=== PATIENT | male | born 1960 | race Caucasian/White ===

== ENCOUNTER → 2016-12-31 | Outpatient (CLI) | payer BC ==
--- NOTE | 2016-12-31 13:04 | XR ---
EXAMINATION TYPE: XR chest 2V DATE OF EXAM: 12/31/2016 12:59 PM COMPARISON: NONE HISTORY: Shortness of breath TECHNIQUE: Frontal and lateral views of the chest are obtained. FINDINGS: Scattered senescent parenchymal changes noted. Hyperinflation compatible with COPD. No evidence for infiltrate. No evidence for atelectasis. Heart size is stable. Mediastinal structures are stable and grossly unremarkable. No evidence for hilar prominence. Degenerative changes dorsal spine. IMPRESSION: 1. No evidence for acute pulmonary disease.
== END | disposition home or self-care (01) ==
LOC: RADXRMAIN 12:44
PROVIDERS: ATTEND Family Medicine
DX: J18.9 Pneumonia, unspecified organism (principal)
CPT/HCPCS: 71020

== ENCOUNTER → 2018-04-26 | Outpatient (CLI) | payer BC ==
--- NOTE | 2018-04-26 13:23 | XR ---
EXAMINATION TYPE: XR wrist complete BILATERAL DATE OF EXAM: 04/26/2018 CLINICAL HISTORY: Arthropathy per order. Bilateral pain. TECHNIQUE: Frontal, lateral, scaphoid, and oblique images of the bilateral wrists are obtained. COMPARISON: Left wrist x-ray June 09, 2012 FINDINGS: There is no acute fracture/dislocation evident in the bilateral wrists. Mild symmetric rad iocarpal joint space loss is present. No significant spurring is seen bilaterally. The overlying sof t tissue appears unremarkable bilaterally. IMPRESSION: As above.
--- NOTE | 2018-04-26 13:24 | XR ---
EXAMINATION TYPE: XR hand complete bilateral DATE OF EXAM: 04/26/2018 CLINICAL HISTORY: Arthropathy per order. Pain per patient. TECHNIQUE: Frontal, lateral and oblique images of the bilateral hands are obtained. COMPARISON: Left hand x-ray June 09, 2012 FINDINGS: There is no acute fracture/dislocation evident in either hand. The joint spaces in the himanshu ateral hands appear within normal limits. Mild diffuse soft tissue prominence and/or swelling is pres ent bilaterally. Impression: As above.
--- NOTE | 2018-04-26 14:12 | XR ---
EXAMINATION TYPE: XR shoulder complete BILAT DATE OF EXAM: 04/26/2018 CLINICAL HISTORY: Arthropathy per order. TECHNIQUE: Two views of the bilateral shoulders are obtained. COMPARISON: None. FINDINGS: There is no acute fracture/dislocation evident in either shoulder. There is moderate asymm etric increased joint space loss right acromioclavicular joint versus left side which shows mild narr owing. There may be old healed fracture mid aspect left clavicle. Glenohumeral joints are preserved b ilaterally. The visualized ribs are intact and unremarkable bilaterally. IMPRESSION: As above.
--- NOTE | 2018-04-26 14:14 | XR ---
EXAMINATION TYPE: XR Hip Bilateral Complete DATE OF EXAM: 04/26/2018 CLINICAL HISTORY: Bilateral hip pain. TECHNIQUE: AP and frogleg views of the bilateral hips are obtained. COMPARISON: None. FINDINGS: There is no acute fracture/dislocation evident in hilar hip. There is asymmetric mild to m oderate left axial joint space loss and head neck junction spurring in the left hip. Right hip joint is fairly well-maintained. The overlying soft tissue appears unremarkable bilaterally. IMPRESSION: There is asymmetric degenerative change in the left hip.
== END | disposition home or self-care (01) ==
LOC: RADXRMAIN 12:32
PROVIDERS: ATTEND Family Medicine
DX: R93.7 Abnormal findings on diagnostic imaging of other parts of musculoskeletal system (principal); M25.832 Other specified joint disorders, left wrist; M25.831 Other specified joint disorders, right wrist; M25.552 Pain in left hip; M12.9 Arthropathy, unspecified; M79.89 Other specified soft tissue disorders
CPT/HCPCS: 73521

== ENCOUNTER → 2019-01-02 | Outpatient (CLI) | payer BC ==
[2019-01-02 18:40] LABS: Vitamin D 25 Hydroxy 10.3 ng/mL (30.0-100.0)
== END | disposition home or self-care (01) ==
LOC: LABWHC1 13:09
PROVIDERS: ATTEND Psychiatry & Neurology Neurology
DX: M79.10 Myalgia, unspecified site (principal); R41.3 Other amnesia; M54.2 Cervicalgia; M25.50 Pain in unspecified joint
CPT/HCPCS: 36415; 82306; 82550; 82607; 82747; 85652

== ENCOUNTER → 2020-10-29 | Outpatient (CLI) | payer BC ==
--- NOTE | 2020-10-29 15:50 | XR ---
EXAMINATION TYPE: XR chest 2V DATE OF EXAM: 10/29/2020 COMPARISON: 12/31/2016 HISTORY: 60-year-old male upper respiratory infection, J06.9 TECHNIQUE: Frontal and lateral views FINDINGS: The cardiomediastinal silhouette, aorta, and pulmonary vasculature are within normal limits. Lungs an d pleural spaces are clear. IMPRESSION: No acute cardiopulmonary process.
== END | disposition home or self-care (01) ==
LOC: RADXRMAIN 13:53
PROVIDERS: ATTEND Family Medicine
DX: J06.9 Acute upper respiratory infection, unspecified (principal)
CPT/HCPCS: 71046

== ENCOUNTER → 2021-05-04 | Outpatient (CLI) | payer BC ==
--- NOTE | 2021-05-04 13:36 | XR ---
EXAMINATION TYPE: XR cervical spine w flex/ext DATE OF EXAM: 05/04/2021 COMPARISON: NONE HISTORY: Spondylosis TECHNIQUE: AP, flexion and extension, lateral oblique and odontoid views of the cervical spine were o btained. FINDINGS: The dens is intact. Atlantoaxial and atlantooccipital articulations appear intact. There is mild to moderate left neural foraminal stenosis. Mild right neural foraminal stenosis. C7-T1 is well visualized. No loss of vertebral body height. No significant narrowing of the intervertebral disc sp aces. There is a prominent osteophyte anteriorly at C5-C6. Prevertebral soft tissues are unremarkable . No instability on flexion or extension views. IMPRESSION: 1. Multilevel degenerative changes as described above. No loss of vertebral body height suggest acute compression fracture.
== END | disposition home or self-care (01) ==
LOC: RADXRMAIN 13:09
PROVIDERS: ATTEND Internal Medicine
DX: M99.71 Connective tissue and disc stenosis of intervertebral foramina of cervical region (principal)
CPT/HCPCS: 72052

== ENCOUNTER → 2021-05-21 | Outpatient (CLI) | payer BC ==
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
== END | disposition home or self-care (01) ==
LOC: RADMRIMAIN 16:32
PROVIDERS: ATTEND Internal Medicine
DX: M50.221 Other cervical disc displacement at C4-C5 level (principal)
CPT/HCPCS: 72141

== ENCOUNTER → 2021-06-18 | Outpatient (CLI) | payer BC ==
--- NOTE | 2021-06-18 16:18 | XR ---
EXAMINATION TYPE: XR chest 2V DATE OF EXAM: 06/18/2021 COMPARISON: 10/29/2020 HISTORY: 61-year-old male M5 0.023 TECHNIQUE: Frontal and lateral views FINDINGS: The cardiomediastinal silhouette, aorta, and pulmonary vasculature are within normal limits. Some str yamile atelectasis retrocardiac region. No consolidation or pleural effusion. IMPRESSION: No acute cardiopulmonary process.
== END | disposition home or self-care (01) ==
LOC: RADXRMAIN 13:56
PROVIDERS: ATTEND Neurological Surgery
DX: M50.023 Cervical disc disorder at C6-C7 level with myelopathy (principal); Z20.822 Contact with and (suspected) exposure to COVID-19
CPT/HCPCS: 71046; U0003; U0005

== ENCOUNTER → 2021-07-13 | Outpatient (CLI) | payer BC | END | disposition home or self-care (01) | LOC: LABWHC1 11:08 | PROVIDERS: ATTEND Neurological Surgery | DX: Z20.822 Contact with and (suspected) exposure to COVID-19 (principal); M50.023 Cervical disc disorder at C6-C7 level with myelopathy | CPT/HCPCS: U0003; C9803; U0005 ==

== ENCOUNTER 2022-01-08 12:08 | Emergency (ER) | payer BC ==
[2022-01-08 12:19] LABS: Glucose,Whole Blood 109 mg/dL (75-99)
[2022-01-08] MEDS ORDERED: SODIUM CHLORIDE 0.9% 500 ML 500 ML IV STA (12:31)
[2022-01-08 12:50] VITALS: BP 132/74; RESP 16
[2022-01-08 13:09] LABS: ALT 46 U/L (4-49); AST 34 U/L (17-59); African American GFR (CKD) >90 (>60 ml/min/1.73 sqM); Albumin 4.6 g/dL (3.5-5.0); Alcohol <10 mg/dL; Alkaline Phosphatase 77 U/L (38-126); Anion Gap 7 mmol/L; Blood Urea Nitrogen 19 mg/dL (9-20); Calcium 9.3 mg/dL (8.4-10.2); Carbon Dioxide 27 mmol/L (22-30); Chloride 104 mmol/L (98-107); Glucose 98 mg/dL (74-99); Magnesium 1.9 mg/dL (1.6-2.3); Non-African American GFR(CKD) >90 (>60 ml/min/1.73 sqM); Potassium 4.2 mmol/L (3.5-5.1); Sodium 138 mmol/L (137-145); Total Bilirubin 1.4 mg/dL (0.2-1.3); Total Protein 7.9 g/dL (6.3-8.2)
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
[2022-01-08 13:12] LABS: Basophils # (A) 0.1 k/uL (0-0.2); Basophils % (A) 1 %; Eosinophils # (A) 0.1 k/uL (0-0.7); Eosinophils % (A) 2 %; HCT 49.5 % (39.0-53.0); HGB 16.7 gm/dL (13.0-17.5); Lymphocytes # (A) 1.6 k/uL (1.0-4.8); Lymphocytes % (A) 19 %; MCH 30.9 pg (25.0-35.0); MCHC 33.7 g/dL (31.0-37.0); MCV 91.7 fL (80.0-100.0); Mean Platelet Volume 6.8; Monocytes # (A) 0.4 k/uL (0-1.0); Monocytes % (A) 4 %; Neutrophils # (A) 6.3 k/uL (1.3-7.7); Neutrophils % (A) 74 %; Platelet Count 235 k/uL (150-450); RBC 5.39 m/uL (4.30-5.90); RDW 12.3 % (11.5-15.5); WBC 8.5 k/uL (3.8-10.6)
[2022-01-08 13:41] LABS: Partial Thromboplastin Time 23.9 sec (22.0-30.0); Prothrombin Time 10.8 sec (9.0-12.0)
[2022-01-08 14:30] LABS: Appearance,Urine Clear (Clear); Bilirubin,Urine Negative (Negative); Blood,Urine Negative (Negative); Color,Urine Light Yellow; Glucose,Urine (UA) Negative (Negative); Ketones,Urine Negative (Negative); Leukocyte Esterase,Urine Negative (Negative); Nitrite,Urine Negative (Negative); PH, Urine 7.5 (5.0-8.0); Protein,Urine Negative (Negative); Specific Gravity,Urine 1.009 (1.001-1.035); Urobilinogen,Urine <2.0 mg/dL (<2.0)
[2022-01-08 14:45] LABS: Amphetamine Screen,Urine Not Detected (NotDetected); Barbiturate Screen,Urine Not Detected (NotDetected); Benzodiazepines Screen,Urine Not Detected (NotDetected); Cocaine Screen,Urine Not Detected (NotDetected); Methadone Screen, Urine Not Detected (NotDetected); Opiate Screen,Urine Not Detected (NotDetected); Oxycodone Screen, Urine Not Detected (NotDetected); Phencyclidine Screen,Urine Not Detected (NotDetected); Tricyclic Antidepressant,Urine Not Detected (NotDetected); Urn Cannabinoid Scrn Not Detected (NotDetected)
[2022-01-08 15:21] VITALS: PULSE 62; TEMP 97.4
== END 2022-01-08 15:25 | disposition home or self-care (01) ==
LOC: EC 12:08
DX: T88.7XXA Unspecified adverse effect of drug or medicament, initial encounter (principal); Z88.0 Allergy status to penicillin; Z90.49 Acquired absence of other specified parts of digestive tract; X58.XXXA Exposure to other specified factors, initial encounter
CPT/HCPCS: 36415; 80053; 80306; 80320; 81003; 83605; 83735; 84484; 85025; 85610; 85730; 93005; 99285

== ENCOUNTER → 2022-09-27 | Outpatient (CLI) | payer MEDICARE ==
--- NOTE | 2022-09-27 13:01 | XR ---
EXAMINATION TYPE: XR elbow complete RT DATE OF EXAM: 09/27/2022 CLINICAL HISTORY: Pain. Recent fall injury. TECHNIQUE: Frontal, lateral and oblique images of the right elbow are obtained. COMPARISON: None FINDINGS: There is no acute fracture/dislocation evident in the right elbow. No abnormal fat pad si gns are seen. Small spur from the medial epicondyle distal humerus. Tiny ossifications near distal tr iceps tendon insertion on the olecranon. The overlying soft tissue appears unremarkable. IMPRESSION: There is no acute fracture or dislocation in the right elbow.
--- NOTE | 2022-09-27 13:03 | XR ---
EXAMINATION TYPE: XR shoulder complete RT DATE OF EXAM: 09/27/2022 CLINICAL HISTORY: Pain. TECHNIQUE: Three views of the right shoulder are obtained. COMPARISON: Bilateral shoulder x-rays 2018. FINDINGS: There is no acute fracture/dislocation evident in either shoulder. Moderate to severe narr owing at the acromioclavicular joint redemonstrated. Distal acromion morphology unremarkable. Glenoh umeral joint maintained. The visualized ribs are intact. Surgical change lower cervical spine is susp ected on one image. IMPRESSION: As above.
--- NOTE | 2022-09-27 13:04 | XR ---
EXAMINATION TYPE: XR Hip Complete LT DATE OF EXAM: 09/27/2022 CLINICAL HISTORY: Pain. TECHNIQUE: AP and frogleg views of the left hip are obtained. COMPARISON: None. FINDINGS: There is no acute fracture/dislocation evident in the left hip. Moderate axial joint space loss left hip. [id number] head neck collar spurring proximal left femur. Subchondral cystic ch alisia superior lateral acetabulum. Moderate rectal fecal prominence noted. Correlate clinically. IMPRESSION: As above.
== END | disposition home or self-care (01) ==
LOC: RADXRMAIN 12:04
PROVIDERS: ATTEND Internal Medicine
DX: M25.552 Pain in left hip (principal); M25.511 Pain in right shoulder; M25.521 Pain in right elbow
CPT/HCPCS: 73502

== ENCOUNTER → 2022-10-19 | Outpatient (CLI) | payer MEDICARE | END | disposition home or self-care (01) | LOC: RADNMMAIN 07:31 | PROVIDERS: ATTEND Internal Medicine | DX: Z53.9 Procedure and treatment not carried out, unspecified reason (principal) ==

== ENCOUNTER → 2023-02-08 | Outpatient (CLI) | payer MEDICARE ==
[2023-02-08 12:51] LABS: Partial Thromboplastin Time 24.9 sec (22.0-30.0)
[2023-02-08 15:03] LABS: Prothrombin Time 10.1 sec (9.0-12.0)
[2023-02-08 15:33] LABS: HCT 45.7 % (39.6-50.0); HGB 15.1 g/dL (13.0-17.0); MCH 30.2 pg (27.0-32.0); MCV 91.4 fL (80.0-97.0); Mean Platelet Volume 9.6 fL (9.5-12.2); NRBC Per 100 WBC 0 /100 WBCS (0.0-0.0); Platelet Count 257 X 10*3/uL (140-440); RDW 12.1 % (11.5-14.5); WBC 5.56 X 10*3/uL (4.50-10.00)
[2023-02-08 15:45] LABS: Appearance,Urine Clear (Clear); Bilirubin,Urine Negative (Negative); Blood,Urine Negative (Negative); Color,Urine Yellow (Yellow); Ketones,Urine Negative (Negative); Nitrite,Urine Negative (Negative); Specific Gravity,Urine 1.018 (1.001-1.030)
[2023-02-08 16:18] LABS: African American GFR (CKD) 108.9 (60.0-200.0); Albumin 4.3 g/dL (3.8-4.9); Albumin/Globulin Ratio 1.58 (1.60-3.17); Anion Gap 11.9 mmol/L (10.00-18.00); BUN/Creat Ratio 21.13 Ratio (12.00-20.00); Calcium 9.5 mg/dL (8.7-10.3); Carbon Dioxide 24.3 mmol/L (20.0-27.5); Globulin 2.7 g/dL (1.6-3.3); Potassium 4.9 mmol/L (3.5-5.5); Total Bilirubin 0.6 mg/dL (0.30-1.20)
== END | disposition home or self-care (01) ==
LOC: LABPAT 11:03
PROVIDERS: ATTEND Orthopaedic Surgery
DX: Z01.812 Encounter for preprocedural laboratory examination (principal); M16.12 Unilateral primary osteoarthritis, left hip
CPT/HCPCS: 80053; 81003; 85027; 85610; 85730; 86850; 86900; 86901; 87070; 93005

== ENCOUNTER 2023-02-15 05:34 | Day surgery (SDC) | payer MEDICARE ==
[~2023-02-15 05:34] MED LIST: ACETAMINOPHEN TAB 500 MG TAB PO PRN; GABAPENTIN 300 MG CAP PO PRN; MELOXICAM 7.5 MG TAB PO PRN; TRANEXAMIC ACID IN NACL,ISO-OS 1,000 MG in SALINE 1 100ML.BAG IVPB PRN
[2023-02-15] MEDS ORDERED: MIDAZOLAM 2 MG/2 ML VIAL IV PRN (05:42)
[2023-02-15] MEDS ORDERED: DEXAMETHASONE SOD PHOSPHATE 4 MG/ML 1 ML VIAL IV ONE (05:42)
[2023-02-15] MEDS ORDERED: LACTATED RINGERS 1,000 ML IV SCH (05:42)
[2023-02-15] MEDS ORDERED: ONDANSETRON 4 MG/2 ML VIAL IVP ONE (05:42)
[2023-02-15] MEDS ORDERED: LIDOCAINE 1% (10MG/ML) FOR IV START INTRADERMA PRN (05:42)
[2023-02-15] MEDS ORDERED: fentaNYL (PF) 50 MCG/1 ML VIAL IVP ONE (06:34)
[2023-02-15 06:53] VITALS: RESP 16
[2023-02-15] MEDS ORDERED: fentaNYL (PF) 50 MCG/ML 2 ML AMP ONE (06:57)
[2023-02-15] MEDS ORDERED: ROPIVACAINE 5 MG/ML 30 ML VIAL ONE (06:57)
[2023-02-15] MEDS ORDERED: SUCCINYLCHOLINE CHLORIDE 200 MG/10 ML VIAL IV ONE (06:57)
[2023-02-15] MEDS ORDERED: GLYCOPYRROLATE 0.2 MG/ML 2 ML VIAL ONE (06:57)
[2023-02-15] MEDS ORDERED: PROPOFOL 10 MG/ML 20 ML VIAL IV ONE (06:57)
[2023-02-15] MEDS ORDERED: TRANEXAMIC ACID IN NACL,ISO-OS 1,000 MG/100 ML BAG ONE (06:57)
[2023-02-15] MEDS ORDERED: LIDOCAINE 2% INJ 20 MG/ML (2 ML VIAL) ONE (06:57)
[2023-02-15] MEDS ORDERED: ceFAZolin 1,000 MG in SODIUM CHLORIDE 0.9% 1,000 ML IRRIGATION ONE (07:00)
[2023-02-15] MEDS ORDERED: ROPIVACAINE 5 MG/ML 30 ML VIAL MISCELLANE ONE (07:26)
[2023-02-15] MEDS ORDERED: LACTATED RINGERS 1,000 ML IV ONE (08:08)
--- NOTE | 2023-02-15 08:19 | P.OP ---
Date of Procedure: 02/15/23 Preoperative Diagnosis: Severe osteoarthritis left hip Postoperative Diagnosis: Severe osteoarthritis left hip Procedure(s) Performed: Left total hip arthroplasty with a direct anterior approach Implants: [employer] Polarstem standard size 2 [employer] R3, 3 hole hemispherical acetabular shell, 50 mm [employer] Reflection 6.5 mm cancellus screw, 20 mm, 25 mm [employer] R3, XLPE 20 acetabular liner [employer]hew Oxinium femoral head 36 m, +0 All components were press-fit. The articulation is Oxinium on polyethylene. Anesthesia: GETA Surgeon: Dov Kimball Patient Access Coordinator #1: Sarah Aguilar Estimated Blood Loss (ml): 650 Pathology: other (Femoral head) Condition: stable Disposition: PACU Indications for Procedure: After failure of conservative treatment we discussed the surgical and nonsurgica l treatment options at length. Patient wishes to proceed with a total hip arthroplasty with a direct anterior approach. Complications specific to this procedure were discussed at length, including but not limited to infection, leg length discrepancy, dislocation, nerve injury, and fracture. Covid-19 was also discussed at length with the patient, and they are aware of the current policies and procedures. The patient was given the option of delaying surgery, but they elect to proceed knowing these risks. Patient is aware of all these complications and informed consent was obtained Operative Findings: The operative findings are consistent with severe osteoarthritis of the left hip Description of Procedure: The patient was seen and evaluated in the preoperative area and the consent was reviewed. The operative site was marked with a skin marker. The patient verified the procedure and operative site. A KRISOTFER block was placed by anesthesia in the preoperative area. The patient was then brought to the operating room and given preoperative antibiotics intravenously. 1 g of Tranexamic acid was also given intravenously. A general anesthetic was administered by the anesthesia department. The patient was then placed on the [place] table with the bony prominences well-padded. The hip area was then prepped with a ChloraPrep solution and draped in the usual sterile fashion. A universal timeout was then performed, which confirmed the patient's name, surgical site, ALLERGIES, and procedure being performed on the consent. Next the incision site was located at 1 cm distal and 4 cm lateral to the anterior superior iliac spine. The skin and subcutaneous tissues were sharply incised. Incision was carefully dissected down to the fascia overlying the tensor fascia faby muscle. This fascia was then incised in line with the muscle fibers. Care was taken to stay laterally in order to avoid injuring the lateral femoral cut aneous nerve. Next, using blunt finger dissection, the tensor fascia faby muscle was dissected off its investing fascia. The muscle was then carefully retracted laterally with a cobra retractor over the lateral neck of the femur. Next, the circumflex vessels were identified and cauterized using the Aquamantis device. The anterior hip capsule was then exposed. The capsule was then opened and an inverted T fashion. The retractors were then placed intracapsularly. The retractors were maintained intracapsular throughout the procedure. The proximal femur was then visualized. Fluoroscopic x-rays were then taken in order to evaluate the preoperative leg lengths. A small amount of traction was placed on the leg. The femoral neck was then osteotomized at the appropriate level above the lesser trochanter. A small wedge of bone was then removed from the remaining femoral head. Next, using a corkscrew the femoral head was removed from the acetabulum. On gross visual inspection, the femoral head had complete loss of articular cartilage and multiple periarticular osteophytes. The femoral head was then measured. Attention was then turned to the acetabulum. The acetabulum was exposed and any remaining labrum was excised. Sequential reaming of the acetabulum was performed using fluoroscopic guidance until there was a good bed of bleeding cancellus bone. When the appropriate size was reached, a trial was then placed. The position and fit of the trial was checked with fluoroscopy. The trial was then removed. Then, using fluoroscopic guidance, the final implant was impacted at 20 of anteversion and 40 of abduction, and fully seated in the acetabulum. 2 screws were then placed in the acetabulum. Again fluoroscopy was used to check position of the screws. Next, the liner was then impacted, with a 20 elevated liner located in the anterior superior quadrant. Component locking was confirmed. Attention was then directed to the femur. With the aid of the [place] table, the femur was externally rotated to approximately 130, extended, and adducted under the opposite leg. A side hook was then placed under the proximal femur, and the side hook elevator was used to elevate the proximal femur while releasing the capsule. Retractors were then placed. A capsular release was performed, as well as a release of the conjoined tendon, which afforded excellent visual ization of the proximal femur. Next, a box osteotome was used to lateralize the proximal femur. A handicapped teacher was then used to locate the femoral canal. Sequential broaching was then performed with appropriate size which afforded excellent fixation in the proximal femur. A trial was then placed with appropriate head and neck, and the hip was gently reduced with the aid of the [place] table. Fluoroscopy was then used to check position of the components, as well as to evaluate the leg lengths and offset. The leg lengths and offset were measured as closely as possible to ensure stability of the hip. The hip was then gently dislocated and the trials were then removed. Final implants were then impacted and the hip was again reduced. Final fluoroscopic x-rays confirmed that the components were in anatomic position. The leg lengths and offset were measured and were found to coincide with the trial measurements. The hip was also taken through range of motion, and found to be stable. The hip was then copiously irrigated with antibiotic solution with pulsatile lavage. The hip was then irrigated with Irrisept solution. The soft tissues were then injected with a ropivacaine solution. A second dose of 1 g of Tranexamic acid was also given intravenously. The fascia was then closed with 2-0 strata fix suture. The subcutaneous tissue was closed with 3-0 Vicryl. The subcuticular tissue was closed with 3-0 strata fix suture. The skin was then closed with Exofin skin glue. After the glue and dried, and Optifoam silver impregnated dressing was applied. The patient was then transferred to the recovery room in stable condition. The assistant plant control operator RAMANA Powell was required due to the complexity of surgery, and the need for skilled surgical specialist for positioning, draping, exposure, retraction, and closure of the wound.
--- NOTE | 2023-02-15 08:33 | FL ---
EXAMINATION TYPE: FL guidance operating room, XR Hip Limited LT DATE OF EXAM: 02/15/2023 CLINICAL HISTORY: Left hip pain and osteoarthritis TECHNIQUE: Fluoroscopy. Limited intraoperative views left hip. COMPARISON: Left hip x-ray September 27, 2022. FINDINGS: Fluoroscopic guidance was provided during left hip replacement procedure performed by Dr. Kimball. A total of 29 seconds of fluoroscopic time was utilized during the procedure and 3 spot im ages was acquired. Total DAP 1.6773 Gy x cm2. Intraoperative images acquired show metallic hardware from total left hip arthroplasty satisfactory i n position on frontal projection. IMPRESSION: As Above.
[2023-02-15] MEDS ORDERED: HYDROmorphone 1 MG/ML 1 ML SYRINGE IVP PRN (08:43)
[2023-02-15] MEDS ORDERED: ONDANSETRON 4 MG/2 ML VIAL IVP PRN (08:43)
[2023-02-15] MEDS ORDERED: HYDROmorphone 0.5 MG/0.5 ML SYRINGE IVP PRN ×2 (08:43)
[2023-02-15] MEDS ORDERED: NALOXONE 0.4 MG/ML 1 ML VIAL IV PRN (08:43)
--- NOTE | 2023-02-15 08:44 | P.ANPRN ---
Procedure Note - Anesthesia - Nerve Block Performed Left Ricky Time Out Performed: Yes (:33) Date of Procedure: 02/15/23 Procedure Start Time: Procedure Stop Time: : Location of Patient: PreOp Indication: Acute Post-Operative Pain, Requested by Surgeon (Dr Kimball) Sedation Type: Sedate with meaningful contact maintained Preparation: Sterile Prep Position: Supine Catheter: None Needle Types: Pajunk Needle Gauge: 21 Ultrasound used to visualize needle placement: Yes Ultrasound used to observe medication spread: Yes Injectate: 0.5% Ropivacaine (see comment for volume) (30cc) Blood Aspirated: No Pain Paresthesia on Injection Noted: No Resistance on Injection: Normal Image Stored and Saved: Yes Events: Uneventful and Well Tolerated
[2023-02-15] MEDS ORDERED: SODIUM CHLORIDE 0.9% 1,000 ML IV SCH (08:45)
[2023-02-15] MEDS ORDERED: HYDROcodone/APAP 7.5-325MG 1 EACH TAB PO PRN ×2 (08:45)
[2023-02-15 08:46] VITALS: TEMP 97.8
[2023-02-15] MEDS: HYDROmorphone 0.5 MG/0.5 ML SYRINGE IVP PRN ×2 (09:01→09:15)
--- NOTE | 2023-02-15 09:24 | XR ---
EXAMINATION TYPE: XR Hip Limited LT DATE OF EXAM: 02/15/2023 CLINICAL HISTORY: Left hip pain and osteoarthritis. TECHNIQUE: Single AP portable view of left hip is obtained immediately postoperatively. COMPARISON: None. FINDINGS: Metallic hardware from left hip arthroplasty is seen and appears satisfactory in alignment and position. There is evidence of recent surgery with subcutaneous gas noted laterally. IMPRESSION: Metallic hardware from left hip arthroplasty is satisfactory in position.
[2023-02-15 11:15] VITALS: BP 109/79; PULSE 98
== END 2023-02-15 12:04 | disposition home health service (06) ==
LOC: OR 05:34
PROVIDERS: ATTEND Orthopaedic Surgery
DX: M16.12 Unilateral primary osteoarthritis, left hip (principal); G89.18 Other acute postprocedural pain; I10 Essential (primary) hypertension; E78.5 Hyperlipidemia, unspecified; J45.909 Unspecified asthma, uncomplicated; Z79.51 Long term (current) use of inhaled steroids; Z72.0 Tobacco use; F03.90 Unspecified dementia, unspecified severity, without behavioral disturbance, psychotic disturbance, mood disturbance, and anxiety; M79.7 Fibromyalgia; M19.90 Unspecified osteoarthritis, unspecified site; K21.9 Gastro-esophageal reflux disease without esophagitis; Z79.1 Long term (current) use of non-steroidal anti-inflammatories (NSAID); Z79.899 Other long term (current) drug therapy; F10.20 Alcohol dependence, uncomplicated; Z88.0 Allergy status to penicillin; Z91.048 Other nonmedicinal substance allergy status
CPT/HCPCS: 27130; 64447; 97530; 97161; 76942; 86900; 86901; 86850; 88300; 73501; C1776; J0330; J1100; J0690 ×2; J2405; J3010 ×2; J2795; J2704; J1170; J2001

== ENCOUNTER → 2023-04-20 | Outpatient (CLI) | payer MEDICARE ==
[2023-04-20 13:43] LABS: ALT 30 U/L (4-49); AST 33 U/L (17-59); African American GFR (CKD) >90 (>60 ml/min/1.73 sqM); Albumin 4.6 g/dL (3.5-5.0); Albumin/Globulin Ratio 1.5; Alkaline Phosphatase 87 U/L (38-126); Anion Gap 10 mmol/L; Blood Urea Nitrogen 20 mg/dL (9-20); Calcium 9.4 mg/dL (8.4-10.2); Carbon Dioxide 25 mmol/L (22-30); Chloride 104 mmol/L (98-107); Glucose 91 mg/dL (74-99); Non-African American GFR(CKD) >90 (>60 ml/min/1.73 sqM); Potassium 4.3 mmol/L (3.5-5.1); Sodium 139 mmol/L (137-145); Total Bilirubin 1.1 mg/dL (0.2-1.3); Total Protein 7.6 g/dL (6.3-8.2)
[2023-04-20 13:51] LABS: Basophils # (A) 0.1 k/uL (0-0.2); Basophils % (A) 1 %; Eosinophils # (A) 0.2 k/uL (0-0.7); Eosinophils % (A) 3 %; HCT 48.5 % (39.0-53.0); HGB 15.8 gm/dL (13.0-17.5); Lymphocytes # (A) 2.4 k/uL (1.0-4.8); Lymphocytes % (A) 35 %; MCH 30.2 pg (25.0-35.0); MCHC 32.7 g/dL (31.0-37.0); MCV 92.5 fL (80.0-100.0); Mean Platelet Volume 7.1; Monocytes # (A) 0.3 k/uL (0-1.0); Monocytes % (A) 4 %; Neutrophils # (A) 3.9 k/uL (1.3-7.7); Neutrophils % (A) 56 %; Platelet Count 254 k/uL (150-450); RBC 5.24 m/uL (4.30-5.90); WBC 6.9 k/uL (3.8-10.6)
[2023-04-20 13:58] LABS: T4, Free (Free Thyroxine) 1.03 ng/dL (0.78-2.19)
[2023-04-20 15:46] LABS: Appearance,Urine Clear (Clear); Bilirubin,Urine Negative (Negative); Blood,Urine Negative (Negative); Color,Urine Yellow; Glucose,Urine (UA) Negative (Negative); Ketones,Urine Negative (Negative); Leukocyte Esterase,Urine Negative (Negative); Nitrite,Urine Negative (Negative); PH, Urine 5.5 (5.0-8.0); Protein,Urine Trace (Negative); Specific Gravity,Urine 1.029 (1.001-1.035); Urobilinogen,Urine <2.0 mg/dL (<2.0)
[2023-04-21 05:13] LABS: Chol/HDL Ratio 3.21 Ratio; LDL Cholesterol,Calculated 74.4 mg/dL (0.0-131.0)
== END | disposition home or self-care (01) ==
LOC: LABWHC1 10:55
PROVIDERS: ATTEND Internal Medicine
DX: E78.2 Mixed hyperlipidemia (principal); K21.00 Gastro-esophageal reflux disease with esophagitis, without bleeding
CPT/HCPCS: 36415; 80053; 80061; 81003; 83036; 83735; 84439; 84443; 85025

== ENCOUNTER 2023-06-09 14:14 | Emergency (ER) | payer MEDICARE ==
[2023-06-09] MEDS ORDERED: SODIUM CHLORIDE 0.9% 1,000 ML IV ONE (14:45)
[2023-06-09] MEDS ORDERED: MECLIZINE 12.5 MG TAB PO STA (15:00)
[2023-06-09 15:17] VITALS: RESP 18
[2023-06-09 15:21] LABS: Basophils # (A) 0.1 k/uL (0-0.2); Basophils % (A) 1 %; Eosinophils # (A) 0.2 k/uL (0-0.7); Eosinophils % (A) 2 %; HCT 48.7 % (39.0-53.0); HGB 16.2 gm/dL (13.0-17.5); Lymphocytes # (A) 1.8 k/uL (1.0-4.8); Lymphocytes % (A) 20 %; MCH 29.2 pg (25.0-35.0); MCHC 33.2 g/dL (31.0-37.0); MCV 87.8 fL (80.0-100.0); Monocytes # (A) 0.4 k/uL (0-1.0); Monocytes % (A) 4 %; Neutrophils # (A) 6.7 k/uL (1.3-7.7); Neutrophils % (A) 72 %; Platelet Count 256 k/uL (150-450); RBC 5.55 m/uL (4.30-5.90); RDW 12.6 % (11.5-15.5); WBC 9.3 k/uL (3.8-10.6)
[2023-06-09 15:42] LABS: ALT 27 U/L (4-49); AST 26 U/L (17-59); African American GFR (CKD) >90 (>60 ml/min/1.73 sqM); Albumin 4.3 g/dL (3.5-5.0); Alkaline Phosphatase 80 U/L (38-126); Anion Gap 7 mmol/L; Blood Urea Nitrogen 17 mg/dL (9-20); Calcium 9.8 mg/dL (8.4-10.2); Carbon Dioxide 27 mmol/L (22-30); Chloride 104 mmol/L (98-107); Glucose 100 mg/dL (74-99); Non-African American GFR(CKD) >90 (>60 ml/min/1.73 sqM); Potassium 4.9 mmol/L (3.5-5.1); Sodium 138 mmol/L (137-145); Total Bilirubin 1.3 mg/dL (0.2-1.3); Total Protein 7.3 g/dL (6.3-8.2)
--- NOTE | 2023-06-09 15:57 | CT ---
EXAMINATION TYPE: CT brain wo con DATE OF EXAM: 06/09/2023 COMPARISON: 09/23/2015 INDICATION: Dizziness. DLP: 1151.4 mGycm, Automated exposure control for dose reduction was used. CONTRAST: None CT of the brain is performed utilizing 3 mm thick sections through the posterior fossa and 3 mm thick sections through the remaining calvarium. Study is performed within 24 hours of arrival to the hosp ital. No abnormal hyperdensity is present to suggest an acute intracranial hemorrhage. No mass lesion is evident. No acute infarcts are evident. Ventricles and sulci are appropriate for the patient age. Paranasal sinuses and mastoid air cells within the [id number] are clear. IMPRESSIONS: 1. No acute intracranial process. Follow-up MRI can be performed as clinically indicated.
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
[2023-06-09] MEDS ORDERED: KETOROLAC 15 MG/ML 1 ML VIAL IVP STA (16:10)
[2023-06-09 18:11] VITALS: BP 128/73; PULSE 58; TEMP 97
== END 2023-06-09 18:11 | disposition home or self-care (01) ==
LOC: EC 14:14
DX: R42 Dizziness and giddiness (principal); R51.9 Headache, unspecified; I10 Essential (primary) hypertension; E78.5 Hyperlipidemia, unspecified; Z79.899 Other long term (current) drug therapy; Z88.0 Allergy status to penicillin; Z88.8 Allergy status to other drugs, medicaments and biological substances
CPT/HCPCS: 36415; 93005; 80053; 85025; 70450; 99284; 96374; 96361 ×2; J1885

== ENCOUNTER 2023-10-31 13:46 | Emergency (ER) | payer MEDICARE ==
[2023-10-31] MEDS ORDERED: SODIUM CHLORIDE 0.9% 500 ML 500 ML IV STA (14:12)
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
[2023-10-31 14:45] LABS: Basophils # (A) 0.1 k/uL (0-0.2); Basophils % (A) 1 %; Eosinophils # (A) 0.1 k/uL (0-0.7); Eosinophils % (A) 1 %; HCT 48.9 % (39.0-53.0); HGB 16.5 gm/dL (13.0-17.5); Lymphocytes # (A) 1.8 k/uL (1.0-4.8); Lymphocytes % (A) 24 %; MCH 29.4 pg (25.0-35.0); MCHC 33.9 g/dL (31.0-37.0); MCV 86.8 fL (80.0-100.0); Monocytes # (A) 0.3 k/uL (0-1.0); Monocytes % (A) 4 %; Neutrophils # (A) 5.1 k/uL (1.3-7.7); Neutrophils % (A) 70 %; Platelet Count 256 k/uL (150-450); RBC 5.63 m/uL (4.30-5.90); RDW 12.1 % (11.5-15.5); WBC 7.4 k/uL (3.8-10.6)
[2023-10-31 14:46] LABS: Appearance,Urine Clear (Clear); Bilirubin,Urine Negative (Negative); Blood,Urine Negative (Negative); Color,Urine Yellow; Glucose,Urine (UA) Negative (Negative); Ketones,Urine 1+ (Negative); Leukocyte Esterase,Urine Negative (Negative); Nitrite,Urine Negative (Negative); PH, Urine 7.5 (5.0-8.0); Protein,Urine Negative (Negative); Specific Gravity,Urine 1.019 (1.001-1.035); Urobilinogen,Urine <2.0 mg/dL (<2.0)
[2023-10-31 14:56] LABS: ALT 31 U/L (4-49); AST 27 U/L (17-59); African American GFR (CKD) >90 (>60 ml/min/1.73 sqM); Albumin 4.4 g/dL (3.5-5.0); Alkaline Phosphatase 78 U/L (38-126); Amylase 65 U/L (30-110); Anion Gap 13 mmol/L; Blood Urea Nitrogen 19 mg/dL (9-20); Calcium 9.6 mg/dL (8.4-10.2); Carbon Dioxide 21 mmol/L (22-30); Chloride 105 mmol/L (98-107); Glucose 96 mg/dL (74-99); Lipase 120 U/L (23-300); Non-African American GFR(CKD) >90 (>60 ml/min/1.73 sqM); Potassium 4.3 mmol/L (3.5-5.1); Sodium 139 mmol/L (137-145); Total Bilirubin 1.7 mg/dL (0.2-1.3); Total Protein 7.1 g/dL (6.3-8.2)
--- NOTE | 2023-10-31 14:59 | XR ---
EXAMINATION TYPE: XR chest 2V DATE OF EXAM: 10/31/2023 2:48 PM CLINICAL INDICATION:Male, 63 years old with history of abdominal pain; [facility] COMPARISON: Chest radiographs from 06/18/2021 TECHNIQUE: XR chest 2V Frontal and lateral views of the chest. FINDINGS: Lungs/Pleura: There is no evidence of pleural effusion, focal consolidation, or pneumothorax. Pulmonary vascularity: Unremarkable. Heart/mediastinum: Cardiomediastinal silhouette is unremarkable. Musculoskeletal: No acute osseous pathology. There is fixation hardware in the lower cervical spine. Other findings: None IMPRESSION: No acute cardiopulmonary disease/process.
[2023-10-31 15:02] LABS: Partial Thromboplastin Time 24.4 sec (22.0-30.0); Prothrombin Time 11.3 sec (10.0-12.5)
[2023-10-31 15:52] VITALS: RESP 18
--- NOTE | 2023-10-31 16:08 | CT ---
EXAMINATION TYPE: CT abdomen pelvis wo con CT DLP: 606.4 mGycm, Automated exposure control for dose reduction was used. DATE OF EXAM: 10/31/2023 3:41 PM COMPARISON: CT abdomen pelvis most recent from 01/09/2014 CLINICAL INDICATION:Male, 63 years old with history of abdominal pain; left sided abdominal pain TECHNIQUE: Axial CT abdomen pelvis wo con;Sagittal and coronal reformats were created on a separate workstation. Contrast used: mL of , (none if empty) Oral contrast used: without Oral Contrast (none if empty) FINDINGS: LOWER CHEST: Unremarkable ABDOMEN LIVER: Unremarkable GALLBLADDER AND BILE DUCTS: Unremarkable. PANCREAS: Unremarkable. SPLEEN: Unremarkable. ADRENAL GLANDS: Unremarkable. KIDNEYS AND URETERS: No evidence of hydronephrosis or renal calculus. The ureters are unremarkable. PELVIS BLADDER: Unremarkable REPRODUCTIVE: Unremarkable. ABDOMEN & PELVIS STOMACH AND BOWEL: No evidence of bowel obstruction. Scattered colonic diverticula are present. The a ppendix is normal in course is towards midline in the mid abdomen. PERITONEUM/RETROPERITONEUM: No evidence of pneumoperitoneum or free fluid. VASCULATURE: Mild atherosclerotic calcifications are present throughout the abdominal aorta and its b ranches. No evidence of aortic aneurysm. MUSCULOSKELETAL: No acute osseous abnormalities. Mild disc degeneration changes are present throughou t the thoracolumbar spine. Left hip arthroplasty changes. Hardware appears intact. LYMPH NODES: No gross evidence for lymphadenopathy. SOFT TISSUE/ABDOMINAL WALL: Fatty changes to the inguinal canals. IMPRESSION: No finding to correlate patient's left-sided abdominal pain. No evidence for obstructive uropathy or renal calculus.
[2023-10-31 17:20] VITALS: BP 124/77; PULSE 60; TEMP 98.1
== END 2023-10-31 17:02 | disposition home or self-care (01) ==
LOC: EC 13:46
DX: R53.1 Weakness (principal); R10.9 Unspecified abdominal pain; E78.5 Hyperlipidemia, unspecified; I10 Essential (primary) hypertension; Z20.822 Contact with and (suspected) exposure to COVID-19; Z79.899 Other long term (current) drug therapy; Z88.0 Allergy status to penicillin; Z91.041 Radiographic dye allergy status
CPT/HCPCS: 36415; 71046; 74176; 80053; 81003; 82150; 83605; 83690; 84484; 85025; 85610; 85730; 87636; 99285

== ENCOUNTER → 2023-12-21 | Outpatient (CLI) | payer MEDICARE ==
--- NOTE | 2024-01-25 05:45 | EM ---
EVENT MONITOR The patient was monitored between the and 23 December 2023. The rhythm strip revealed a sinus mechanism with episode of sinus bradycardia. The patient had pauses up to 5.8 seconds noted on the 21 of December at 9:50 a.m. There was another episode of pauses of 8.3 seconds on the same day. No atrial fibrillation was noted. BENJAMÍN / MELISAN: [id number] /
== END | disposition home or self-care (01) ==
LOC: RADECHMAIN 07:56
PROVIDERS: ATTEND Internal Medicine
DX: R00.1 Bradycardia, unspecified (principal); R55 Syncope and collapse
CPT/HCPCS: 93270

== ENCOUNTER 2023-12-22 10:27 | Inpatient (IN) | payer MEDICARE ==
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
[2023-12-22 11:52] LABS: Basophils # (A) 0.1 k/uL (0-0.2); Basophils % (A) 1 %; Eosinophils # (A) 0.1 k/uL (0-0.7); Eosinophils % (A) 1 %; HCT 47.8 % (39.0-53.0); HGB 16.2 gm/dL (13.0-17.5); Lymphocytes # (A) 1.9 k/uL (1.0-4.8); Lymphocytes % (A) 24 %; MCH 30.4 pg (25.0-35.0); MCV 89.5 fL (80.0-100.0); Mean Platelet Volume 7.8; Monocytes # (A) 0.4 k/uL (0-1.0); Monocytes % (A) 5 %; Neutrophils # (A) 5.4 k/uL (1.3-7.7); Neutrophils % (A) 69 %; Platelet Count 306 k/uL (150-450); RBC 5.34 m/uL (4.30-5.90); RDW 12.5 % (11.5-15.5); WBC 7.9 k/uL (3.8-10.6)
[2023-12-22 12:02] LABS: ALT 22 U/L (4-49); AST 24 U/L (17-59); African American GFR (CKD) >90 (>60 ml/min/1.73 sqM); Albumin 4.4 g/dL (3.5-5.0); Alkaline Phosphatase 78 U/L (38-126); Anion Gap 10 mmol/L; Blood Urea Nitrogen 18 mg/dL (9-20); Calcium 9.6 mg/dL (8.4-10.2); Carbon Dioxide 24 mmol/L (22-30); Chloride 107 mmol/L (98-107); Glucose 107 mg/dL (74-99); Non-African American GFR(CKD) >90 (>60 ml/min/1.73 sqM); Potassium 4.2 mmol/L (3.5-5.1); Sodium 141 mmol/L (137-145); Total Bilirubin 1.2 mg/dL (0.2-1.3); Total Protein 7.1 g/dL (6.3-8.2)
[2023-12-22] MEDS ORDERED: NITROGLYCERIN SL TABS 0.4 MG TAB SUBLINGUAL PRN (12:44)
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
--- NOTE | 2023-12-22 13:56 | XR ---
EXAMINATION TYPE: XR chest 2V DATE OF EXAM: 12/22/2023 COMPARISON: 2023. HISTORY: Arrhythmia. TECHNIQUE: Frontal and lateral views of the chest are obtained. FINDINGS: There is no focal air space opacity, pleural effusion, or pneumothorax seen. The cardiac silhouette size is within normal limits. The osseous structures are intact. Generator device is see n in the left thorax. No lesions are identified. IMPRESSION: No acute cardiopulmonary process.
[2023-12-22] MEDS: BACLOFEN 10 MG TAB PO SCH (20:38)
[2023-12-23] MEDS: PANTOPRAZOLE 40 MG TABLET PO SCH (06:18)
[2023-12-23] MEDS: TAMSULOSIN 0.4 MG CAP.ER.24H PO SCH (08:34)
[2023-12-23] MEDS: CHOLECALCIFEROL 25 MCG (1000 IU) TABLET PO SCH (08:34)
[2023-12-23] MEDS: ASPIRIN 325 MG TAB PO SCH (08:34)
[2023-12-23] MEDS: DONEPEZIL 10 MG TAB PO SCH (08:34)
[2023-12-23] MEDS: ATORVASTATIN 80 MG TAB PO SCH (08:34)
[2023-12-23] MEDS: CALCIUM CARBONATE 500 MG CHEWABLE PO SCH (08:34)
[2023-12-23] MEDS ORDERED: NON FORMULARY DRUG (Vitamin B Complex/Folic Acid [Vitamin B Complex Tablet] 0.4 MG Tablet) PO SCH (09:00)
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
--- NOTE | 2023-12-23 13:39 | P.PN ---
Subjective Progress Note Date: 12/23/23 HISTORY OF PRESENT ILLNESS This is a 63-year-old male patient with PMH of mild persistent asthma, migraine, GERD, OSWALDO, OA, dementia, benign prostatic hypertrophy. Patient was last seen in the office on November 04 at which time he stated that he fell a couple days prior did not remember what happened and he scraped his forehead. A 30-day event monitor was ordered and patient was wearing this when a call was made stating that the patient had pauses 5.9 to 9-second pauses. The initial call was on Tuesday and patient was contacted but was feeling fine did not want to come into the hospital. He was again called on morning regarding the same instructed to come into the emergency center which she did. Patient does complain of some intermittent left-sided lateral chest pain. No shortness of breath. He said no syncopal episodes but his states he slumped over yesterday. Patient will be admitted to the cardiac stepdown unit and consult placed with cardiology for anticipated pacemaker implantation. 12/23: Patient has been seen by cardiology with recommendations to continue telem etry monitoring galantamine yesterday. We will discontinue aricept. Heart rate has been in the 60s, blood pressure 117/73, pulse ox 95% on room air. REVIEW OF SYSTEMS Constitutional: No fever, no chills, no night sweats. No weight change. No weakness, fatigue or lethargy. No daytime sleepiness. EENT: No headache. No blurred vision or double vision, no loss of vision. No loss of Hearing, no ringing in the ears, no dizziness. No nasal drainage or congestion. No epistaxis. No sore throat. Lungs: No shortness of breath, cough, no sputum production. No wheezing. Cardiovascular: No chest pain, no lower extremity edema. No palpitations. No paroxysmal nocturnal dyspnea. No orthopnea. No lightheadedness or dizziness. No syncopal episodes. Abdominal: No abdominal pain. No nausea, vomiting. No diarrhea. No constipation. No bloody or tarry stools. No loss of appetite. Genitourinary: No dysuria, increased frequency, urgency. No urinary retention. Musculoskeletal: No myalgias. No muscle weakness, no gait dysfunction, no frequent falls. No back pain. No neck pain. Integumentary: No wounds, no lesions. No rash or pruritus. No unusual bruising. No change in hair or nails. Neurologic: No aphasia. No facial droop. No change in mentation. No head injury. No headache. No paralysis. No paresthesia. Psychiatric: No depression. No anxiety. No mood swings. Endocrine: No abnormal blood sugars. No weight change. No excessive sweating or thirst. No cold intolerance. PHYSICAL EXAMINATION Gen: This is a 63-year-old male in no acute distress HEENT: Head is atraumatic, normocephalic. Pupils equal, round. Sclerae is anicteric. NECK: Supple. No JVD. No lymphadenopathy. No thyromegaly. LUNGS: Clear to auscultation. No wheezes or rhonchi. No intercostal retractions. HEART: First heart sound is depressed, second sound is normal, no S3-S4, no JVP. ABDOMEN: Soft. Bowel sounds are present. No masses. No tenderness. EXTREMITIES: No pedal edema. No calf tenderness. NEUROLOGICAL: Patient is awake, alert and oriented x3. Cranial nerves 2 through 12 are grossly intact. ASSESSMENT AND PLAN 1. Sinus pauses on event monitor. Consult with cardiology appreciated. Patient is not on any beta-cristina or AV keith blocking agents.. Patient will likely require permanent pacemaker placement on Tuesday with Dr. Gillespie. Stop galantamine and aricept. 2. Mild persistent asthma. Not in exacerbation. 3. Gastroesophageal reflux disease and GI prophylaxis. Continue patient on Protonix 40 mg daily. 4. Benign prostatic hypertrophy. Continue Flomax 0.4 mg daily. 5. Dementia. Hold Namenda and galantamine, monitor the patient's symptoms very closely continue the patient on the monitor. 6. DVT prophylaxis. Patient will be started on Lovenox 40 mg subcutaneously once every day. DISCHARGE PLAN Return home. Impression and plan of care have been directed as dictated by the signing physician. Roma Pearson nurse practitioner acting as scribe for signing physician. For 72 hours. We had discontinued Objective - Vital Signs Vital signs: Vital Signs Temp 98.1 F 12/22/23 20:00 Pulse 62 12/23/23 11:43 Resp 16 12/23/23 11:43 BP 117/73 12/23/23 11:43 Pulse Ox 95 12/23/23 11:43 FiO2 Intake & Output 12/22/23 12/23/23 12/23/23 18:59 06:59 18:59 Intake Total 0 Balance 0 Weight 76.204 kg Intake: Oral 0 Other: # Voids 1 - Labs CBC & Chem 7: 12/22/23 11:21 12/22/23 11:21 Labs: Abnormal Lab Results - Last 24 Hours (Table) 12/22/23 Range/Units 11:21 Glucose 107 H (74-99) mg/dL
[2023-12-23 15:18] LABS: Chol/HDL Ratio 2.82 Ratio; LDL Cholesterol,Calculated 53.8 mg/dL (0.0-131.0); VLDL Calculation 18.54 mg/dL (5.00-40.00)
--- NOTE | 2023-12-24 13:12 | P.PN ---
Subjective Progress Note Date: 12/24/23 This is Neville Whitaker NP, I'm dictating on behalf of Dr. Gillespie's H&P and A&P. Patient was interviewed and examined. Patient is a pleasant 63-year-old male who presented to the hospital with severe bradycardia and cardiac pauses. Patient reports that he is feeling much better today. Telemetry demonstrates that the severe bradycardia his resolved, patient continues to remain bradycardic but in the 50s and 60s. There have been no documented pauses of his heart overnight. GENERAL: Well-appearing, well-nourished and in no acute distress. NECK: Supple without JVD or thyromegaly. LUNGS: Breath sounds clear to auscultation bilaterally. Respiration equal and unlabored. No wheezes, rales or rhonchi. HEART: Regular rate and rhythm without murmurs, rubs or gallops. S1 and S2 heard. EXTREMITIES: Normal range of motion, no edema. No clubbing or cyanosis. Peripheral pulses intact and strong. VITALS: Temp 97.7, pulse 63, respirations 16, blood pressure 112/70, O2 saturation 97% on room air TELEMETRY: Normal sinus rhythm, heart rate 63 LABS: No new labs since 12/22/2023 IMPRESSION: 1. Severe sinus bradycardia and syncope and sinus pauses exacerbated by galantamine 2. Hyperlipidemia 3. Dementia PLAN: Galantamine has been discontinued. Patient has no longer had any sinus pauses per telemetry. Have patient walk in the hallway and see how he responds. Watch for another day. After discharge, in 2 to 3 weeks, we will place a monitor to ensure no intrinsic sick sinus syndrome. No need for pacemaker implantation at this time. Further recommendations based on patient's clinical course. Objective - Vital Signs Vital signs: Vital Signs Temp 98.1 F 12/24/23 12:50 Pulse 71 12/24/23 12:50 Resp 16 12/24/23 12:50 BP 117/73 12/24/23 12:50 Pulse Ox 98 12/24/23 12:50 FiO2 Intake & Output 12/23/23 12/24/23 12/24/23 18:59 06:59 18:59 Intake Total 236 10 240 Balance 236 10 240 Intake: IV 10 Invasive Line 1 10 Oral 236 240 Other: Voiding Method Toilet # Voids 2 2 # Bowel Movements 2 0 - Labs CBC & Chem 7: 12/22/23 11:21 12/22/23 11:21 Labs: Abnormal Lab Results - Last 24 Hours (Table) 12/22/23 Range/Units 11:20 HDL Cholesterol 39.70 L (40.00-60.00) mg/dL
--- NOTE | 2023-12-24 13:49 | CA ---
Transthoracic Echo Report Name: Endy Angulo Age: 63 Gender: M : 1960 Exam Date: 12/22/2023 13:51 Exam Location: [facility] Ht (in): 66 Wt (lb): 168 Ordering Physician: Roma Pearson Attending/Referring Phys: Broke Worker Jesika Cutler RCS Procedure CPT: Indications: LVF Cardiac Hx: Technical Quality: Technically difficult study Contrast 1: Definity Total Dose (mL): 2 Contrast 2: Agitated Saline Total Dose (mL): 10 MEASUREMENTS (Male / Female) Normal Values 2D ECHO LV Diastolic Diameter PLAX 4.5 cm 4.2 - 5.9 / 3.9 - 5.3 cm LV Systolic Diameter PLAX 3.2 cm IVS Diastolic Thickness 1.0 cm 0.6 - 1.0 / 0.6 - 0.9 cm LVPW Diastolic Thickness 1.0 cm 0.6 - 1.0 / 0.6 - 0.9 cm LV Relative Wall Thickness 0.4 RV Internal Dim ED PLAX 3.3 cm LVOT Diameter 2.0 cm LV Diastolic Volume MOD 4C 102.3 cm??? LV Systolic Volume MOD 4C 35.7 cm??? LV Ejection Fraction MOD 4C 65.1 % LV Cardiac Index MOD 4C 2139.6 cm???/min???m??? LV Diastolic Length 4C 8.3 cm LV Systolic Length 4C 6.9 cm LA Volume 45.0 cm??? 18 - 58 / 22 - 52 cm??? LA Volume Index 23.7 cm???/m??? 16 - 28 cm???/m??? DOPPLER AV Peak Velocity 148.0 cm/s AV Peak Gradient 8.8 mmHg AV Mean Velocity 88.2 cm/s AV Mean Gradient 3.7 mmHg AV Velocity Time Integral 28.7 cm LVOT Peak Velocity 104.8 cm/s LVOT Peak Gradient 4.4 mmHg LVOT Velocity Time Integral 23.2 cm LVOT Stroke Volume 74.5 cm??? LVOT Stroke Volume Index 40.1 ml/m??? LVOT Cardiac Index 2390.0 cm???/min???m??? AV Area Cont Eq vti 2.6 cm??? AV Area Cont Eq pk 2.3 cm??? MV Area PHT 4.0 cm??? Mitral E Point Velocity 93.3 cm/s Mitral A Point Velocity 74.9 cm/s Mitral E to A Ratio 1.2 MV Deceleration Time 188.1 ms PV Peak Velocity 91.8 cm/s PV Peak Gradient 3.4 mmHg FINDINGS Left Ventricle Left ventricular ejection fraction is estimated at 60-65 %. Left ventricular cavity size normal. Left ventricular wall thickness normal. No obvious regional wall motion abnormalities. Right Ventricle Normal right ventricular size and function. Unable to determine right ventricular systolic pressure. Right Atrium Normal right atrial size. Left Atrium Normal left atrial size. Mitral Valve Structurally normal mitral valve. No mitral stenosis.Trace mitral regurgitation. Aortic Valve Trileaflet aortic valve. No aortic valve stenosis or regurgitation. Tricuspid Valve Structurally normal tricuspid valve. No tricuspid stenosis, regurgitation or prolapse. Pulmonic Valve Structurally normal pulmonic valve. No pulmonic stenosis. No pulmonic regurgitation. Pericardium No pericardial effusion. Aorta Normal size aortic root and proximal ascending aorta. CONCLUSIONS Preserved LV systolic function Possible mild RV enlargement Previewed by: Dr. Joseph Gillespie MD (Electronically Signed) Final Date: 24 December 2023 13:48
--- NOTE | 2023-12-24 18:14 | P.PN ---
Subjective This is a 63-year-old male patient with PMH of mild persistent asthma, migraine, GERD, OSWALDO, OA, dementia, benign prostatic hypertrophy. Patient was last seen in the office on November 04 at which time he stated that he fell a couple days prior did not remember what happened and he scraped his forehead. A 30-day event monitor was ordered and patient was wearing this when a call was made stating that the patient had pauses 5.9 to 9-second pauses. The initial call was on Tuesday and patient was contacted but was feeling fine did not want to come into the hospital. He was again called on morning regarding the same instructed to come into the emergency center which she did. Patient does complain of some intermittent left-sided lateral chest pain. No shortness of breath. He said no syncopal episodes but his states he slumped over yesterday. Patient will be admitted to the cardiac stepdown unit and consult placed with cardiology for anticipated pacemaker implantation. 12/23: Patient has been seen by cardiology with recommendations to continue telemetry monitoring galantamine yesterday. We will discontinue aricept. Heart rate has been in the 60s, blood pressure 117/73, pulse ox 95% on room air. Patient is asymptomatic no other new complaints Heart rate improved 55-74 after stopping galantamine, patient is aware to discontinue medication upon discharge and he started back to me No plan for pacemaker Event monitor upon discharge per trench pipe layer Possible discharge in 24 to 48 hours if he keeps improving Objective - Vital Signs Vital signs: Vital Signs Temp 98.1 F 12/24/23 12:50 Pulse 71 12/24/23 12:50 Resp 16 12/24/23 12:50 BP 117/73 12/24/23 12:50 Pulse Ox 98 12/24/23 12:50 FiO2 Intake & Output 12/23/23 12/24/23 12/24/23 18:59 06:59 18:59 Intake Total 236 10 240 Balance 236 10 240 Intake: IV 10 Invasive Line 1 10 Oral 236 240 Other: Voiding Method Toilet # Voids 2 2 # Bowel Movements 2 0 - Exam GENERAL: The patient is alert and oriented x3, not in any acute distress. Well developed, well nourished. HEENT: Pupils are round and equally reacting to light. EOMI. No scleral icterus. No conjunctival pallor. Normocephalic, atraumatic. No pharyngeal erythema. No thyromegaly. CARDIOVASCULAR: S1 and S2 present. No murmurs, rubs, or gallops. PULMONARY: Chest is clear to auscultation, no wheezing , no crackles. ABDOMEN: Soft, nontender, nondistended, normoactive bowel sounds. No palpable organomegaly. MUSCULOSKELETAL: No joint swelling or deformity. EXTREMITIES: No cyanosis, clubbing, or pedal edema. NEUROLOGICAL: Gross neurological examination did not reveal any focal deficits. SKIN: No rashes. no petechiae. - Labs CBC & Chem 7: 12/22/23 11:21 12/22/23 11:21 Labs: Abnormal Lab Results - Last 24 Hours (Table) 12/22/23 Range/Units 11:20 HDL Cholesterol 39.70 L (40.00-60.00) mg/dL Assessment and Plan Assessment: 1. Sinus pauses on event monitor. Consult with cardiology appreciated. Patient required event monitor upon discharge, follow-up with trench pipe layer dr. Gillespie. Stop galantamine and aricept. Is aware 2. Mild persistent asthma. Not in exacerbation. 3. Gastroesophageal reflux disease and GI prophylaxis. Continue patient on Protonix 40 mg daily. 4. Benign prostatic hypertrophy. Continue Flomax 0.4 mg daily. 5. Dementia. Hold Namenda and galantamine, monitor the patient's symptoms very closely continue the patient on the monitor. 6. DVT prophylaxis. Patient will be started on Lovenox 40 mg subcutaneously once every day.
[2023-12-25] MEDS: ENOXAPARIN 40 MG/0.4 ML SYRINGE SQ SCH (10:23)
[2023-12-25 10:39] VITALS: TEMP 97.3
--- NOTE | 2023-12-25 12:12 | P.DS ---
Providers Date of admission: 12/22/23 13:26 Expected date of discharge: 12/25/23 Attending physician: Marcos Collier Consults: 12/22/23 12:44 Consult Physician Urgent Consulting Provider: Kamlesh Mon Consult Reason/Comments: Arrhythmias (ie pauses) on event monitor Do you want consulting provider notified?: Yes Primary care physician: Marcos Collier Hospital Course: 63-year-old male patient with PMH of mild persistent asthma, migraine, GERD, OSWALDO, OA, dementia, benign prostatic hypertrophy. Patient was last seen in the office on November 04 at which time he stated that he fell a couple days prior did not remember what happened and he scraped his forehead. A 30-day event monitor was ordered and patient was wearing this when a call was made stating that the patient had pauses 5.9 to 9-second pauses. The initial call was on Tuesday and patient was contacted but was feeling fine did not want to come into the hospital. He was again called on morning regarding the same instructed to come into the emergency center which she did. Patient does complain of some intermittent left-sided lateral chest pain. No shortness of breath. He said no syncopal episodes but his states he slumped over yesterday. Patient will be admitted to the cardiac stepdown unit and consult placed with cardiology for anticipated pacemaker implantation. 12/23: Patient has been seen by cardiology with recommendations to continue telemetry monitoring galantamine yesterday. We will discontinue aricept. Heart rate has been in the 60s, blood pressure 117/73, pulse ox 95% on room air. Patient is asymptomatic no other new complaints Heart rate improved 55-74 after stopping galantamine, patient is aware to discontinue medication upon discharge and he started back to me No plan for pacemaker Event monitor upon discharge per self contained behavior unit teacher Possible discharge in 24 to 48 hours if he keeps improving 12/25/2023: Patient seen and evaluated bedside, at bedside as well patient to be discharged home heart rate remained stable in high 50s, patient medications including memantine/Namenda has been discontinued. Patient has not been receiving galantamine as well. Patient to follow-up with cardiology office outpatient for event monitor. Patient to be discharged home remains asymptomatic PHYSICAL EXAMINATION: GENERAL: The patient is alert and oriented x3, not in any acute distress. Well developed, well nourished. HEENT: Pupils are round and equally reacting to light. EOMI. No scleral icterus. No conjunctival pallor. Normocephalic, atraumatic. No pharyngeal erythema. No thyromegaly. CARDIOVASCULAR: S1 and S2 present. No murmurs, rubs, or gallops. PULMONARY: Chest is clear to auscultation, no wheezing or crackles. ABDOMEN: Soft, nontender, nondistended, normoactive bowel sounds. No palpable organomegaly. MUSCULOSKELETAL: No joint swelling or deformity. EXTREMITIES: No cyanosis, clubbing, or pedal edema. NEUROLOGICAL: Gross neurological examination did not reveal any focal deficits. SKIN: No rashes. Assessment and plan 1. Sinus pauses on event monitor. Consult with cardiology appreciated. Patient required event monitor upon discharge, follow-up with self contained behavior unit teacher dr. Gillespie. Stop galantamine and Namenda 2. Mild persistent asthma. Not in exacerbation. 3. Gastroesophageal reflux disease, continue omeprazole 4. Benign prostatic hypertrophy. Continue Flomax 0.4 mg daily. 5. Dementia. Hold Namenda and galantamine, monitor the patient's symptoms very closely continue the patient on the monitor. Patient Condition at Discharge: Fair Plan - Discharge Summary Discharge Rx Participant: No New Discharge Prescriptions: Continue Atorvastatin Calcium [Lipitor] 80 mg PO DAILY Cholecalciferol [Vitamin D3 (25 Mcg = 1000 Iu)] 50 mcg PO DAILY [place]-3/Dha/Epa/Fish Oil [Fish Oil 1,000 mg Softgel] 1 cap PO DAILY Calcium Carbonate [Calcium] 600 mg PO DAILY Baclofen [Lioresal] 20 mg PO HS Tamsulosin [Flomax] 0.4 mg PO DAILY Vitamin B Complex/Folic Acid [Vitamin B Complex Tablet] 1 tab PO DAILY Omeprazole 20 mg PO DAILY Discontinued Memantine [Namenda] 10 mg PO BID Galantamine HBr [Galantamine HBr ER] 24 mg PO DAILY Discharge Medication List Atorvastatin Calcium [Lipitor] 80 mg PO DAILY 01/08/22 [History] Cholecalciferol [Vitamin D3 (25 Mcg = 1000 Iu)] 50 mcg PO DAILY 02/09/23 [History] [place]-3/Dha/Epa/Fish Oil [Fish Oil 1,000 mg Softgel] 1 cap PO DAILY 02/09/23 [History] Tamsulosin [Flomax] 0.4 mg PO DAILY 02/09/23 [History] Calcium Carbonate [Calcium] 600 mg PO DAILY 10/31/23 [History] Baclofen [Lioresal] 20 mg PO HS 12/22/23 [History] Omeprazole 20 mg PO DAILY 12/22/23 [History] Vitamin B Complex/Folic Acid [Vitamin B Complex Tablet] 1 tab PO DAILY 12/22/23 [History] Follow up Appointment(s)/Referral(s): Marcos Collier MD [Primary Care Provider] - 1-2 days Joseph Gillespie MD [STAFF PHYSICIAN] - 1 Week (Follow-up with their office to get an event monitor) Discharge Disposition: HOME SELF-CARE
--- NOTE | 2023-12-25 12:40 | P.PN ---
Subjective Progress Note Date: 12/25/23 The patient is a 63-year-old male who is currently admitted to the hospital severe bradycardia and syncope. Patient was started on galantamine, which has since been discontinued. Patient states he feels well. He has been up ambulating around his room without episodes of dizziness and lightheadedness. He denies any chest pain and states he is breathing well GENERAL: Well-appearing, well-nourished and in no acute distress. NECK: Supple without JVD or thyromegaly. LUNGS: Breath sounds clear to auscultation bilaterally. Respiration equal and unlabored. No wheezes, rales or rhonchi. HEART: Regular rate and rhythm without murmurs, rubs or gallops. S1 and S2 heard. EXTREMITIES: Normal range of motion, no edema. No clubbing or cyanosis. Peripheral pulses intact and strong. TELEMETRY: Sinus rhythm overnight. No pauses or heart block noted. IMPRESSION: Severe sinus bradycardia and syncope Arrhythmia exacerbated by galantamine Hyperlipidemia Dementia PLAN: Patient has done well over the last 24 hours He may be discharged Follow-up with Dr. Gillespie 2 weeks I am dictating on behalf of Dr Joseph Gillespie's history/physical and assessment/plan. Objective - Vital Signs Vital signs: Vital Signs Temp 97.3 F L 12/25/23 10:15 Pulse 60 12/25/23 10:15 Resp 16 12/25/23 10:15 BP 122/75 12/25/23 10:15 Pulse Ox 98 12/25/23 10:15 FiO2 Intake & Output 12/24/23 12/25/23 12/25/23 18:59 06:59 18:59 Intake Total 240 10 128 Balance 240 10 128 Intake: IV 10 10 Invasive Line 1 10 10 Oral 240 118 Other: Voiding Method Toilet Toilet # Voids 2 # Bowel Movements 0 - Labs CBC & Chem 7: 12/22/23 11:21 12/22/23 11:21
[2023-12-25 13:12] VITALS: BP 120/74; PULSE 58; RESP 18
== END 2023-12-25 13:19 | disposition home or self-care (01) | DRG 310 ==
LOC: EC 10:27 → 3SCARD 13:26
PROVIDERS: ADMIT Internal Medicine; ATTEND Internal Medicine
DX: I49.5 Sick sinus syndrome (principal); E78.5 Hyperlipidemia, unspecified; T44.0X5A Adverse effect of anticholinesterase agents, initial encounter; F03.90 Unspecified dementia, unspecified severity, without behavioral disturbance, psychotic disturbance, mood disturbance, and anxiety; F17.210 Nicotine dependence, cigarettes, uncomplicated; X58.XXXA Exposure to other specified factors, initial encounter; M79.7 Fibromyalgia; G89.29 Other chronic pain; M54.2 Cervicalgia; M25.519 Pain in unspecified shoulder; I10 Essential (primary) hypertension; J45.30 Mild persistent asthma, uncomplicated; K21.9 Gastro-esophageal reflux disease without esophagitis; N40.0 Benign prostatic hyperplasia without lower urinary tract symptoms; Z79.899 Other long term (current) drug therapy; Z95.0 Presence of cardiac pacemaker; Z90.81 Acquired absence of spleen; Z96.642 Presence of left artificial hip joint; Z88.0 Allergy status to penicillin; Z91.041 Radiographic dye allergy status; Z91.81 History of falling; Z63.4 Disappearance and death of family member; Z90.49 Acquired absence of other specified parts of digestive tract
CPT/HCPCS: 36415; 71046; 80053; 80061; 84443; 84484; 85025; 93005; 93306; 99285

== ENCOUNTER → 2023-12-30 | Outpatient (CLI) | payer MEDICARE ==
--- NOTE | 2023-12-30 17:41 | US ---
EXAMINATION TYPE: US carotid duplex BILAT DATE OF EXAM: 12/30/2023 COMPARISON: NONE CLINICAL INDICATION: Male, 63 years old with history of R55 SYNCOPE AND COLLAPSE; dementia, HTN, Dizz y and lightheaded ? due to medications TECHNIQUE: Carotid duplex ultrasound examination. Indirect Doppler criteria was utilized. FINDINGS: EXAM MEASUREMENTS: RIGHT: Peak Systolic Velocity (PSV) cm/sec ----- Right CCA: 84 ----- Right ICA: 72 ----- Right ECA: 58 ICA/CCA ratio: 0.9 RIGHT: End Diastole cm/sec ----- Right CCA: 23 ----- Right ICA: 23 ----- Right ECA: 10 LEFT: Peak Systolic Velocity (PSV) cm/sec ----- Left CCA: 78 ----- Left ICA: 81 ----- Left ECA: 82 ICA/CCA ratio: 1.0 LEFT: End Diastole cm/sec ----- Left CCA: 18 ----- Left ICA: 31 ----- Left ECA: 09 VERTEBRALS (direction of flow): Right Vertebral: Antegrade Left Vertebral: Antegrade Rhythm: Normal IVF EMBRYOLOGIST NOTES: Plaque noted bilateral bulbs, no elevated velocities noted, and no intimal thicken ing noted. IMPRESSION: Less than 50% stenosis of the bilateral carotid bifurcations. Criteria for Assigning % of Stenosis / Diameter reduction (Estimation based on the indirect measurements of the internal carotid artery velocities (ICA PSV). 1. Normal (no stenosis)=ICA PSV < 125 cm/s: ratio < 2.0: ICA EDV<40 cm/s. 2. Less than 50% stenosis=ICA PSV < 125 cm/s: ratio < 2.0: ICA EDV<40 cm/s. 3. 50 to 69% stenosis=ICA PSV of 125 to 230 cm/s: ration 2.0 ? 4.0: ICA EDV 40-100 cm/s. 4. Greater than 70% stenosis to near occlusion= ICA PSV > 230 cm/s: ratio > 4.0: ICA EDV > 100 cm/s. 5. Near occlusion= ICA PSV velocities may be low or undetectable: variable ratio and ICA EDV. 6. Total occlusion=unable to detect flow.
== END | disposition home or self-care (01) ==
LOC: RADUSWWP 16:08
PROVIDERS: ATTEND Internal Medicine
DX: R55 Syncope and collapse (principal); F03.90 Unspecified dementia, unspecified severity, without behavioral disturbance, psychotic disturbance, mood disturbance, and anxiety; I10 Essential (primary) hypertension; R42 Dizziness and giddiness
CPT/HCPCS: 93880

== ENCOUNTER 2024-06-02 13:29 | Observation (INO) | payer MEDICARE ==
[2024-06-02] MEDS ORDERED: NALOXONE 0.4 MG/ML 1 ML VIAL IV PRN (13:50)
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
[2024-06-02 14:41] LABS: Basophils % (A) 1 %; Eosinophils # (A) 0.2 k/uL (0-0.7); Eosinophils % (A) 2 %; HCT 47.9 % (39.0-53.0); HGB 16.3 gm/dL (13.0-17.5); Lymphocytes # (A) 2.5 k/uL (1.0-4.8); Lymphocytes % (A) 34 %; MCH 30.2 pg (25.0-35.0); MCHC 33.9 g/dL (31.0-37.0); MCV 89.1 fL (80.0-100.0); Mean Platelet Volume 6.4; Monocytes # (A) 0.4 k/uL (0-1.0); Monocytes % (A) 5 %; Neutrophils # (A) 4.3 k/uL (1.3-7.7); Neutrophils % (A) 58 %; Platelet Count 270 k/uL (150-450); RBC 5.38 m/uL (4.30-5.90); WBC 7.5 k/uL (3.8-10.6)
[2024-06-02 14:59] LABS: Partial Thromboplastin Time 24.9 sec (22.0-30.0); Prothrombin Time 11.1 sec (10.0-12.5)
--- NOTE | 2024-06-02 15:03 | XR ---
EXAMINATION TYPE: XR chest 2V DATE OF EXAM: 06/02/2024 COMPARISON: 12/22/2023 HISTORY: 64-year-old male dysrhythmia TECHNIQUE: PA and lateral views FINDINGS: Intervertebral disc prosthesis lower cervical spine. Heart normal size. Aorta and pulmonary vasculatu re within normal limits. No consolidation or pleural effusion. IMPRESSION: No acute cardiopulmonary process.
[2024-06-02 15:04] LABS: ALT 22 U/L (4-49); AST 24 U/L (17-59); African American GFR (CKD) >90 (>60 ml/min/1.73 sqM); Albumin 4.5 g/dL (3.5-5.0); Alkaline Phosphatase 63 U/L (38-126); Anion Gap 10 mmol/L; Blood Urea Nitrogen 20 mg/dL (9-20); Calcium 9.7 mg/dL (8.4-10.2); Carbon Dioxide 23 mmol/L (22-30); Chloride 105 mmol/L (98-107); Glucose 88 mg/dL (74-99); Magnesium 1.8 mg/dL (1.6-2.3); Non-African American GFR(CKD) >90 (>60 ml/min/1.73 sqM); Potassium 4.1 mmol/L (3.5-5.1); Sodium 138 mmol/L (137-145); Total Protein 7.1 g/dL (6.3-8.2)
[2024-06-02] MEDS: METHYLPHENIDATE HCL 5 MG TAB PO SCH (19:50)
[2024-06-02 21:58] VITALS: RESP 18
[2024-06-02] MEDS: BACLOFEN 10 MG TAB PO SCH (23:43)
[2024-06-02] MEDS: TAMSULOSIN 0.4 MG CAP.ER.24H PO SCH (23:43)
[2024-06-03] MEDS: METHYLPHENIDATE HCL 10 MG TAB PO SCH (06:42)
[2024-06-03] MEDS: ATORVASTATIN 80 MG TAB PO SCH (09:36)
[2024-06-03] MEDS: MONTELUKAST 10 MG TAB PO SCH (09:36)
[2024-06-03] MEDS: PANTOPRAZOLE 40 MG TABLET PO SCH (09:36)
[2024-06-03] MEDS: EZETIMIBE 10 MG TAB PO SCH (09:36)
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
[2024-06-04 03:20] VITALS: BP 120/80; PULSE 72; TEMP 97.9
[2024-06-04] MEDS ORDERED: ENOXAPARIN 40 MG/0.4 ML SYRINGE SQ SCH (09:00)
[2024-06-04] MEDS ORDERED: ATORVASTATIN 80 MG TAB ONE (09:34)
[2024-06-04] MEDS ORDERED: ENOXAPARIN 40 MG/0.4 ML SYRINGE SQ ONE (09:34)
[2024-06-04] MEDS ORDERED: PANTOPRAZOLE 40 MG TABLET PO ONE (09:34)
[2024-06-04] MEDS ORDERED: MONTELUKAST 10 MG TAB ONE (09:34)
[2024-06-04] MEDS ORDERED: EZETIMIBE 10 MG TAB ONE (09:34)
== END 2024-06-04 18:30 | disposition home or self-care (01) ==
LOC: EC 13:29 → 6NMEDSUR 13:55 → 3SCARD 20:23
PROVIDERS: ADMIT Internal Medicine; ATTEND Internal Medicine
DX: I45.5 Other specified heart block (principal); F03.90 Unspecified dementia, unspecified severity, without behavioral disturbance, psychotic disturbance, mood disturbance, and anxiety; E78.5 Hyperlipidemia, unspecified; I10 Essential (primary) hypertension; G89.29 Other chronic pain; J45.30 Mild persistent asthma, uncomplicated; K21.9 Gastro-esophageal reflux disease without esophagitis; N40.0 Benign prostatic hyperplasia without lower urinary tract symptoms; G47.33 Obstructive sleep apnea (adult) (pediatric); E78.2 Mixed hyperlipidemia; Z79.899 Other long term (current) drug therapy; Z88.0 Allergy status to penicillin
CPT/HCPCS: 36415; 71046; 80053; 83735; 85025; 85610; 85730; 93005; 99285

== ENCOUNTER → 2024-09-24 | Outpatient (CLI) | payer MEDICARE ==
[2024-09-24 16:21] VITALS: BP 111/75; PULSE 75; RESP 16; TEMP 97.6
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
== END ==
LOC: 3 N SLEEP 15:26
PROVIDERS: ATTEND Internal Medicine
DX: G47.33 Obstructive sleep apnea (adult) (pediatric) (principal); J45.909 Unspecified asthma, uncomplicated; K21.9 Gastro-esophageal reflux disease without esophagitis; N40.0 Benign prostatic hyperplasia without lower urinary tract symptoms; E66.9 Obesity, unspecified; Z90.49 Acquired absence of other specified parts of digestive tract; Z96.642 Presence of left artificial hip joint; Z98.890 Other specified postprocedural states; Z86.79 Personal history of other diseases of the circulatory system; Z91.041 Radiographic dye allergy status; Z88.0 Allergy status to penicillin; Z79.899 Other long term (current) drug therapy
CPT/HCPCS: 99211

== ENCOUNTER 2024-10-14 19:40 | Outpatient (CLI) | payer MEDICARE ==
--- NOTE | 2024-10-18 11:53 | P.PCN ---
Description of Procedure: POLYSOMNOGRAPHY REPORT PROCEDURE(S)/DATE(S): Polysomnography 10/14/2024 CLINICAL: Patient has been seen in the sleep center for evaluation of obstructive sleep apnea-hypopnea syndrome. Please see my consultation. Sleep study has been done for evaluation of patient breathing during the sleep. PROCEDURE: The standard montage for clinical polysomnography included the electroencephalogram, the electrooculogram, the mentalis surface electromyography and Lead II cardiography. The respiratory battery consisted of measurements of nasal/buccal air flow, pressure transducer measurements from nose, thoracic and/or abdominal effort and intercostal surface electromyography. Video monitoring has been done to check for any parasomnia events. Nocturnal oxyhemoglobin saturations were obtained by finger oximetry. Step-joy titration with positive airway pressure was utilized to control the respiratory events, if necessary. RESULTS: During the diagnostic sleep study sleep efficiency was extremely short only 21.6%, total sleep time 110.5 minutes. Latency to sleep onset was extrem starr long 143.5 min. Sleep architecture showed stage NI was extremely high 36.2%, Delta sleep was absent %, REM sleep was 0%. Respiratory channel showed 0 obstructive apneas, 0 mixed apneas, 0 central apneas, 2 hypopneas with lowest oxygen level 89%. Total apnea hypopnea index was 1.1. Heart rate was in the range between 65 and 79, average 70. EMG showed 0 periodic limb movements per hour with 0 micro-arousals per hour. IMPRESSIONS: 1. No significant respiratory abnormalities given documented during the sleep study, normal oxygenation, but patient slept only for 110.5 minutes. 2. No significant periodic limb movements have been documented. Please see other impressions from consultation PLAN: 1. I will see patient for follow-up visit to discuss results of the test and recommendations. 2. Losing weight. 3. Sleep hygiene with regular time in bed for at least 7-1/2 hours. 4. No driving if feeling sleepiness. Thank you very much for allowing me to participate in the management of your patient. Sincerely, Shaji Lara MD, PhD, FAASM. Diplomat of [place] [employer], Sleep Medicine Board by [place] [employer] Professor of [facility] [place] cc: Marcos Collier MD
== END 2024-10-15 17:05 | disposition home or self-care (01) ==
LOC: 3 N SLEEP 19:40
PROVIDERS: ATTEND Internal Medicine
DX: G47.33 Obstructive sleep apnea (adult) (pediatric) (principal); Z91.041 Radiographic dye allergy status; Z88.0 Allergy status to penicillin
CPT/HCPCS: 95810

== ENCOUNTER → 2024-11-09 | Outpatient (CLI) | payer MEDICARE | END | disposition home or self-care (01) | LOC: LABWHC1 15:42 | PROVIDERS: ATTEND Psychiatry & Neurology Neurology | DX: G30.9 Alzheimer's disease, unspecified (principal) | CPT/HCPCS: 36415 ==

== ENCOUNTER → 2025-01-14 | Outpatient (CLI) | payer MEDICARE ==
[2025-01-14 20:44] LABS: HCT 45.5 % (39.6-50.0); HGB 15.4 g/dL (13.0-17.0); MCH 30.3 pg (27.0-32.0); MCHC 33.8 g/dL (32.0-37.0); MCV 89.6 FL (80.0-97.0); Mean Platelet Volume 9.4 FL (9.5-12.2); NRBC Per 100 WBC 0 X 10*3/uL (0.00-0.01); Platelet Count 238 X 10*3/uL (140-440); RBC 5.08 X 10*6/uL (4.40-5.60); RDW 11.8 % (11.5-14.5); WBC 6.34 X 10*3/uL (4.50-10.00)
[2025-01-14 22:03] LABS: Chloride 105 mmol/L (96-109); Sodium 140 mmol/L (135-145)
== END | disposition home or self-care (01) ==
LOC: LABPAT 15:21
PROVIDERS: ATTEND Internal Medicine Clinical Cardiac Electrophysiology
DX: Z01.812 Encounter for preprocedural laboratory examination (principal); I48.0 Paroxysmal atrial fibrillation
CPT/HCPCS: 80051; 82565; 84520; 85027

== ENCOUNTER 2025-01-22 09:45 | Day surgery (SDC) | payer MEDICARE ==
[~2025-01-22 09:45] MED LIST changes: -ACETAMINOPHEN TAB 500 MG TAB PO PRN; -GABAPENTIN 300 MG CAP PO PRN; -MELOXICAM 7.5 MG TAB PO PRN; -TRANEXAMIC ACID IN NACL,ISO-OS 1,000 MG in SALINE 1 100ML.BAG IVPB PRN; +diphenhydrAMINE 50 MG/ML 1 ML VIAL IVP PRN
[2025-01-22] MEDS: SODIUM CHLORIDE 0.9% 1,000 ML IV SCH (09:54)
[2025-01-22] MEDS: IV FLUID CONTINUATION 1,000 ML IV ONE (09:55)
[2025-01-22] MEDS ORDERED: MIDAZOLAM 2 MG/2 ML VIAL ONE (11:30)
[2025-01-22] MEDS ORDERED: PROPOFOL 10 MG/ML 20 ML VIAL IV ONE (11:30)
[2025-01-22] MEDS ORDERED: SUCCINYLCHOLINE CHLORIDE 200 MG/10 ML VIAL IV ONE (11:30)
[2025-01-22] MEDS ORDERED: ISOPROTERENOL 250 MCG/1.25 ML SYR IV ONE (11:30)
[2025-01-22] MEDS ORDERED: fentaNYL (PF) 50 MCG/ML 2 ML AMP ONE (11:30)
[2025-01-22] MEDS ORDERED: HEPARIN SODIUM,PORCINE 10,000 UNIT/ML 1 ML VIAL ONE (11:30)
[2025-01-22] MEDS: methylPREDNISolone SOD SUCCI 125 MG/2 ML VIAL IV PRN (12:02)
[2025-01-22] MEDS: LIDOCAINE 1% INJ 10MG/ML (20 ML MDV) SQ ONE (12:14)
[2025-01-22] MEDS: ROPIVACAINE 5 MG/ML 30 ML VIAL MISCELLANE ONE (12:14)
[2025-01-22] MEDS: HEPARIN SOD,PORK IN 0.45% NACL 25,000 UNIT in 0.45% NACL 1 250ML.BAG IV ONE ×2 (13:00→13:30)
[2025-01-22] MEDS: IOPAMIDOL-370 100ML BTL INJ ONE (14:46)
[2025-01-22] MEDS: HEPARIN SODIUM,PORCINE 10,000 UNIT in SODIUM CHLORIDE 0.9% 1,000 ML IRRIGATION ONE (14:48)
[2025-01-22] MEDS: HEPARIN SODIUM,PORCINE (1 ML) 2,500 UNIT in SODIUM CHLORIDE 0.9% 250 ML IRRIGATION ONE (14:48)
[2025-01-22] MEDS: HEPARIN SODIUM (1,000 UNIT/ML) 1,000 UNIT in SODIUM CHLORIDE 0.9% 1,000 ML IRRIGATION ONE (14:58)
[2025-01-22] MEDS ORDERED: ACETAMINOPHEN TAB 325 MG TAB PO PRN (16:14)
--- NOTE | 2025-01-22 16:29 | P.EPPROC ---
- EP Procedure Note Electrophysiology Procedure Note: PROCEDURE A. fib ablation with PVI, left atrial septal ablation and SVC ablation DIAGNOSIS Atrial fibrillation, symptomatic, refractory to therapy Nighttime bradycardia up to 14.5 seconds despite Strattera Tachybradycardia syndrome RESULT No left atrial appendage mass seen on intracardiac echo Successful A. fib ablation/pulmonary vein isolation of all veins using cryo- ablation Complete entrance block in all 4 veins confirmed No evidence for phrenic nerve injury Left atrial septal ablation Ablation of the septal aspect of the SVC in areas of complex fractionation Esophageal deflection NO PROCEDURE DETAILS Written informed consent prior to procedure. Patient brought to the EP lab. General anesthesia given. Heparin administered. A city maintained above 300 seconds Both groins prepped and draped per protocol and venous sheaths placed. Esophagus intubated, circa catheter for temperature monitoring an endoscope for possible esophageal deflection. Phrenic nerve monitoring performed. Esophageal temperature monitoring performed. Esophageal deflection performed if circa catheter overlapping with the balloon or circa temperature less than 27.5C Intracardiac echocardiography performed. Pericardium evaluated. Left atrial appendage evaluated. Left atrium evaluated along with pulmonary veins Transseptal catheterization performed under fluoroscopic guidance and intracardiac echo guidance Cryoablation sheath exchanged, balloon catheter along with achieve catheter placed in the left atrium. Pulmonary veins isolated in the following sequence: Left superior pulmonary vein followed by left inferior pulmonary vein, followed by right inferior pulmonary vein and lastly right superior pulmonary vein. Phrenic nerve stimulation along with capture thresholds within the SVC and right superior pulmonary vein to identify the phrenic nerve proximity to the cryo- balloon. Pulmonary veins isolated and confirmed with entrance and exit block. Phrenic nerve integrity confirmed at the end of the procedure Ablation of the left atrial septum performed with cannulation of the inferior branch of the right superior vein to achieve ablation of the posterior septum of the left atrium. Ablation of electrograms confirmed The right atrium was mapped. The SVC was mapped. Earliest activation of the sinus node was mapped. Complex fractionated electrograms on the septal aspect of the SVC mapped RF ablation performed on the septal aspect of the SVC. Baseline heart rate around 82 beats a minute With this ablation heart rates consistently remained between 93 to 95 bpm. LA interval normal Diagnostic catheters for the high right atrium, His bundle, coronary sinus placed. LA and RA pressures recorded RA pressure: 10/-3/4 LA pressure: 12/-3/4 Diagnostic EP study with coronary sinus pacing and recording Baseline measurements: Sinus cycle length 6 6 9 ms at baseline. LA interval 168 ms, QRS 86 ms and QT 354 ms AH 91 ms, HV 43 ms High-dose Isopril infused Per stimulation from the high right atrium was performed. No inducible atrial fibrillation Venous sheaths were removed and hemostasis assured with a closure device. Patient extubated and transferred to recovery PROCEDURES PERFORMED Diagnostic EP study CS pacing and recording Left and right transseptal catheterization Catheter the mapping of the tachycardia Intracardiac echocardiography Pulmonary vein isolation with transseptal and comprehensive EPS, [id number] Drug infusion, +[id number] Linear ablation right atrium/SVC, +[id number] Linear ablation, left atrium, +[id number]
--- NOTE | 2025-01-22 18:41 | P.EPPROC ---
- EP Procedure Note Electrophysiology Procedure Note: This is Dr. Gillespie dictating an H/P on this patient The patient was interviewed and examined IMPRESSION / ASSESSMENT: Paroxysmal atrial fibrillation with RVR Bradycardia with pauses up to 14.5 seconds Tachybradycardia syndrome Longest pause for 19 seconds PLAN: A-fib ablation with septal SVC ablation and PVI Continue anticoagulation Heparin dose calculated HPI Patient continues to have upper GI symptoms palpitations and long pauses at night despite Strattera He has paroxysms of A-fib with RVR ROS: No fever chills or rigors, no cough, phlegm or expectoration, no nausea, vomiting or diarrhea, no hematuria, dysuria, no musculoskeletal complaints, no strokes or seizures, no skin lesions. EXAMINATION: Blood pressure 126/82 mmHg respirations 18 afebrile Breath sounds are clear no rhonchi no crackles Heart sounds S1-S2 normal Breath sounds are clear Abdomen soft transfer to REVIEW OF LABS, ECG & MEDICAL DATA TSH 0.5
[2025-01-22] MEDS: ACETAMINOPHEN IV (For NPO) 1,000 MG in EMPTY BAG 1 BAG IVPB ONE (21:42)
[2025-01-22] MEDS: BACLOFEN 10 MG TAB PO SCH (21:43)
[2025-01-22] MEDS: TAMSULOSIN 0.4 MG CAP.ER.24H PO SCH (21:43)
[2025-01-22] MEDS: APIXABAN 5 MG TAB PO SCH (21:43)
[2025-01-23 06:19] VITALS: TEMP 97.5
[2025-01-23] MEDS: ATORVASTATIN 80 MG TAB PO SCH (07:57)
--- NOTE | 2025-01-23 08:03 | P.DS ---
Providers Attending physician: Joseph Gillespie [facility] Course: Patient is walking around the room. He says he feels very uncomfortable in the close space and cannot walk out freely and wants to go home He is alert he is oriented. He remembers his 's name he recognizes his nurse I called his and she stated that Endy had developed Alzheimer's and usually behaves like this I do not see any focal deficits. He is walking around the room is moving all his extremities Heart sounds S1-S2 normal Twelve-lead EKG shows mild sinus tachycardia 100 bpm No rub no gallop Clear lungs He said he has a vague discomfort in the chest when he takes of breath Impression Tachybradycardia syndrome Paroxysmal atrial fibrillation Severe nighttime bradycardia with pauses, partial improvement on Strattera IV dye allergy treated with prednisone Plan I called his Jesika and confirmed that the dose of Eliquis that he has at home is 5 mg twice daily. She confirmed that on the bottle I would recommend taking 5 mg of Eliquis twice daily uninterrupted. This was discussed with his mother yesterday too Continue atorvastatin and Zetia I will monitor his rhythm and make a decision regarding long-term treatment with Strattera Plan - Discharge Summary Discharge Rx Participant: Yes New Discharge Prescriptions: New Apixaban [Eliquis] 5 mg PO BID #180 tab Discontinued Apixaban [Eliquis] 2.5 mg PO BID No Action Atorvastatin Calcium [Lipitor] 80 mg PO DAILY Baclofen [Lioresal] 20 mg PO HS Montelukast [Singulair] 10 mg PO DAILY PRN PRN Reason: Allergy Symptoms Lansoprazole [Prevacid] 30 mg PO DAILY Albuterol Inhaler [Ventolin Hfa Inhaler] 1 - 2 puff INHALATION Q6H PRN PRN Reason: Dyspnea predniSONE 8 tab PO BID PRN PRN Reason: Pre-Op Banophen 50 mg PO DIRECTED PRN PRN Reason: Pre-Op Tamsulosin [Flomax] 0.4 mg PO HS Ezetimibe [Zetia] 10 mg PO DAILY Atomoxetine HCl [Strattera] 80 mg PO DAILY Discharge Medication List Atorvastatin Calcium [Lipitor] 80 mg PO DAILY 01/08/22 [History] Tamsulosin [Flomax] 0.4 mg PO HS 02/09/23 [History] Baclofen [Lioresal] 20 mg PO HS 12/22/23 [History] Ezetimibe [Zetia] 10 mg PO DAILY 06/02/24 [History] Lansoprazole [Prevacid] 30 mg PO DAILY 06/02/24 [History] Montelukast [Singulair] 10 mg PO DAILY PRN 06/02/24 [History] Albuterol Inhaler [Ventolin Hfa Inhaler] 1 - 2 puff INHALATION Q6H PRN 09/24/24 [History] Atomoxetine HCl [Strattera] 80 mg PO DAILY 09/24/24 [History] Banophen 50 mg PO DIRECTED PRN 01/22/25 [History] predniSONE 8 tab PO BID PRN 01/22/25 [History] Apixaban [Eliquis] 5 mg PO BID #180 tab 01/23/25 [Rx] Follow up Appointment(s)/Referral(s): Joseph Gillespie MD [STAFF PHYSICIAN] - 1 Week Patient Instructions/Handouts: Cardiac Ablation (GEN) Activity/Diet/Wound Care/Special Instructions: Post EP study - Ablation instructions 1. Keep access sites dry for 2 days. 2. No heavy lifting or straining for 2 days. 3. Avoid bending the hips repeatedly for 2 days. 4. You may go up and down stairs slowly 5. If you have had an ablation for atrial fibrillation or atrial flutter and are on a blood thinner, do not stop the blood thinner even temporarily for 3 months post ablation Call if the following is noted 1. Bleeding, increasing swelling or pain at the access sites. 2. Increasing chest discomfort, especially upon taking a deep breath. 3. Increasing shortness of breath, at rest or with exertion. 4. Undue cough / phlegm 5. Difficulty or pain while swallowing. 6. Pain or change in color in the extremities. 7. Fever, chills, rigors. 8. Increasing headache or neurologic symptoms. 9. Dizziness, fainting, palpitations For patients who have undergone an A-fib ablation /atrial flutter ablation Strict instruction; do NOT stop anticoagulation (Eliquis/Xarelto/Pradaxa) for the next 2 months temporarily, for any elective, nonurgent surgery. This increases the risk of stroke, post A-fib ablation Increase Eliquis to 5 mg twice daily Discharge Disposition: HOME SELF-CARE
[2025-01-23] MEDS: COLCHICINE 0.6 MG EACH PO ONE (08:47)
[2025-01-23 08:55] VITALS: BP 132/88; PULSE 55; RESP 17
== END 2025-01-23 09:58 | disposition home or self-care (01) ==
LOC: CATHEP 09:45 → 6NMEDSUR 15:00 → CATHEP 01-23 09:58
PROVIDERS: ATTEND Internal Medicine Clinical Cardiac Electrophysiology
DX: I48.0 Paroxysmal atrial fibrillation (principal); I49.5 Sick sinus syndrome; Z79.01 Long term (current) use of anticoagulants
CPT/HCPCS: 86900; 86901; 84443; 86850; 93656; 37248; C1759; C1894; C1769; C1760 ×3; C1730 ×2; C1731; C1733; C1766; C1732; J2250; J0330; J1644 ×4; J2003; J3010; J2795; J0131; J2704; Q9967; J2919

== ENCOUNTER 2025-01-31 13:18 | Emergency (ER) | payer MEDICARE ==
[2025-01-31 13:25] VITALS: BP 116/78; PULSE 98; RESP 24
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
[2025-01-31 14:31] VITALS: TEMP 99.3
== END 2025-01-31 14:34 | disposition left against medical advice (07) ==
LOC: EC 13:18
DX: R07.9 Chest pain, unspecified (principal); Z88.0 Allergy status to penicillin; Z88.8 Allergy status to other drugs, medicaments and biological substances; Z53.29 Procedure and treatment not carried out because of patient's decision for other reasons
CPT/HCPCS: 93005; 99284